=== PATIENT | female | born 1950 | race Caucasian/White ===

== ENCOUNTER 2016-09-13 22:21 | Inpatient (IN) ==
[2016-09-14] MEDS ORDERED: NON-FORMULARY MEDICATION 1 EACH EACH (Oxygen [Oxygen] 2 L) IN PRN (01:36)
[2016-09-14] MEDS ORDERED: Naloxone 0.4 MG/ML INJ IVP PRN (01:38)
[2016-09-14] MEDS ORDERED: *HR* OxyCODONE Immed Rel 5 MG TABLET PO PRN (01:38)
[2016-09-14] MEDS ORDERED: Ondansetron 4 MG/2 ML VIAL IVP PRN (01:38)
[2016-09-14] MEDS ORDERED: *HR* HYDROmorphone (PF) 1 MG/ML SYRINGE IVP PRN (01:38)
[2016-09-14] MEDS ORDERED: Acetaminophen 325 MG TABLET PO PRN (01:38)
[2016-09-14] MEDS ORDERED: 0.9 % Sodium Chloride 1,000 ML IVC SCH (01:45)
[2016-09-14] MEDS ORDERED: Dextrose Gel 15 GM PO PRN ×2 (01:50)
[2016-09-14] MEDS ORDERED: D5% in Water 1,000 ML IV PRN (01:50)
[2016-09-14] MEDS ORDERED: *HR* Dextrose 50 % in Water (Syg) 50 ML SYRINGE IVP PRN (01:50)
--- NOTE | 2016-09-14 02:02 | Internal Med History&Physical ---
Date of Encounter: 09/14/16 Time of Encounter: 02:00 Assessment and Plan (1) Symptomatic anemia Status: Acute . (2) History of PTCA Status: Chronic . (3) History of gastrointestinal bleeding Status: Chronic . (4) Hypertension Status: Resolved . Qualifiers: Hypertension type: essential hypertension Qualified Code(s): I10 - Essential (primary) hypertension (5) Dyslipidemia Status: Chronic . (6) COPD (chronic obstructive pulmonary disease) Status: Chronic . Qualifiers: COPD type: unspecified COPD Qualified Code(s): J44.9 - Chronic obstructive pulmonary disease, unspecified (7) SANTI (obstructive sleep apnea) Status: Chronic . (8) Chronic respiratory failure with hypoxia and hypercapnia Status: Chronic . (9) History of sudden cardiac arrest Status: Chronic . (10) Anxiety associated with depression Status: Chronic . (11) PAD (peripheral artery disease) Status: Chronic . (12) Physical deconditioning Status: Chronic . (13) Chronic kidney disease (CKD) Status: Chronic . Qualifiers: Chronic kidney disease stage: stage 5 Qualified Code(s): N18.5 - Chronic kidney disease, stage 5 (14) Coronary artery disease Status: Chronic . Qualifiers: Coronary Disease-Associated Artery/Lesion type: [place] artery [place] vs. transplanted heart: [place] heart Associated angina: without angina Qualified Code(s): I25.10 - Atherosclerotic heart disease of [place] coronary artery without angina pectoris (15) Diabetes mellitus Status: Chronic . Qualifiers: Diabetes mellitus type: type 2 Diabetes mellitus complication status: with kidney complications Diabetes mellitus complication detail: with chronic kidney disease Diabetes mellitus correction insulin use: without intermediate designer use Chronic kidney disease stage: on chronic dialysis Qualified Code(s): E11.22 - Type 2 diabetes mellitus with diabetic chronic kidney disease; N18.6 - End stage renal disease; Z99.2 - Dependence on renal dialysis (16) Lymphedema of both lower extremities Status: Chronic . (17) Morbid obesity Status: Chronic . Qualifiers: Obesity type: due to excess calories Qualified Code(s): E66.01 - Morbid ( severe) obesity due to excess calories (18) Thrombocytopenia Status: Acute . (19) Hypoalbuminemia due to protein-calorie malnutrition Status: Chronic . Internal Medicine - H&P: HPI Chief complaint: Symptomatic anemia. Admitted From: Hospital to Hospital Transfer (Hospital transfer [facility] emergency room) Plans for Post Hospital Care: Transfer Long Term Facility History of present illness: Ms. Golden is a 66 year old female care home resident at long-term [facility] hospital assignment with significant medical history of ESRD (MWF) HD dependent, H/O sudden /cardiac arrest, H/O ventilator-dependent respiratory failure, COPD , chronic hypercapnic respiratory failure home oxygen dependent, Pickwickian syndrome/SANTI (suspect OHS), hypertension, dyslipidemia, CAD/PTCAstents/AMIs, diastolic CHF, osteoarthritis, osteopenia, diabetic retinopathy, diabetic nephropathy, type 2 diabetes mellitus, dementia unspecified, depression and anxiety disorder, morbid obesity, former smoker. The patient was visited and interviewed and examined. The patient is admitted to the [facility] as a hospital transfer from [facility] emergency department where she presented via EMS services from care home in the company of family with complaint of symptomatic" low red blood cell count." The patient had been referred to the emergency department by her care home primary care physician to receive transfusion of 2 units of packed red blood cells because the hemoglobin of 5.8 measured on screening blood tests. (Hbg 8.9 in June 2016) . Patient denied any symptoms of shortness of air syncopal or presyncopal complaints of chest pain aggressive weakness or easy fatigability nor evidence of any active bleeding. Patient did carry a history of congestive heart failure and COPD as well as pickwickian syndrome/OHS/ obstructive sleep apnea in May 2016 and August 2016 the patient had experienced at least 3 separate inpatient hospitalizations for acute worsening in respiratory status brought about by CHF exacerbation worsening sleep apnea as well as acute respiratory failure with markedly hypercapnic and racute espiratory arrest requiring extended ICU/hospitalization for intubation and mechanical ventilator support. Following this she was transferred to care home for long-term care assignment. Since her cardiopulmonary arrests patient has been dialysis dependent Saturday. Findings in the ED: Temperature 97.3 pulse 82 respirations 18 BP 114/62 O2 saturation 98% at 2 L per nasal cannula. WBC 6.2 hemoglobin 7.4 hematocrit 24.7. MCH 26.5 MCHC 30. Platelets 128,000. RDW 22.1. MPV 8.1. Differential normal. Arterial blood gas pH 7.41 PCO2 41 PO2 102 bicarbonate 25.8 O2 saturation 98% on room air. Metabolic panel normal except BUN 22 creatinine 5.36 GFR 48. Glucose 176 osmolality 294. Albumin 2.6 total protein 6.6. 11.2 INR 1. Preliminary impression suggests acute on chronic Blood loss anemia. This in the setting of a patient with known end- stage renal disease and secondary chronic anemia due to this. However exacerbated by multiple hospitalizations within the last 6 months and anticipated multiple venipunctures for laboratory testing contributed iatrogenic blood loss anemia with the patient.denies any thoughts severely limiting symptoms. Initial reported hemoglobin of 5.8 was proven to be closer to 7.4 on current testing. Patient will undergo further evaluation for other sources of blood loss and anemia. He will be transfused during dialysis and initial 2 units packed red blood cells as per request. The patient is at risk acute clinical decline and morbidity due to her significant comorbidities. Workup and treatment will proceed comprehensively. Cumulative laboratory and radiographic data base was reviewed, considered and discussed. Pertinent ancillary medical records including ECW and PCI documentation, when available was reviewed and considered. Given the patient's presenting concerns, past medical history, clinical findings and symptoms, she is admitted at this time will undergo further evaluation and disposition. Orders were written as per the computerized physician line ordering clinician system.......................................................................... .................... Consultative opinion and will be sought as clinical circumstances justify. Initial consultative request has been made to nephrology/dialysis team. Pain management needs will be addressed. Laboratory and radiographic data base will be updated as appropriate. Studies include: Cultures of blood and urine and sputum, iron studies, vitamin B12, NMA , folic acid, cardiac injury panel, BNP, CPK, metabolic and hematologic panel, magnesium, phosphorus, ionized calcium, thyroid panel ,lipid profile, A1c, C- peptide, CRP sedimentation rate, blood gas, UA, Hemoccult , lactic acid, serologies, etc. Precautions: Aspiration, fall, delirium protocol/surveillance initiated. Orthostatic vital signs. Telemetry with continuous hemodynamic monitoring and pulse oximetry initiated. Special studies: Ultrasound retroperitoneum, chest x-ray, telemetry, EKG. The patient will be typed and screened and transfused 2 units of packed red blood cells goal is to achieve a stable hemoglobin of greater than 8.0. Pulmonary toilet: Incentive spirometry. When necessary aerosol bronchodilator, mucolytic, antitussive. Supplemental oxygen. Corticosteroid therapy prn. CPAP /BiPAP supplemental oxygen delivery. Aerosol Mucomyst therapy prn. Patient to resume on Saturday hemodialysis schedule. Fluid and electrolyte repletion efforts will proceed. Careful attention to fluid balance and renal recovery will be emphasized. Avoidance of nephrotoxic exposure and adverse drug drug interaction in the setting of impaired renal function will be monitored closely. Correction of metabolic and acid-base deficits will be emphasized Acute coronary syndrome protocol/surveillance initiated. DVT and PUD prophylaxis initiated: PPI therapy, intermittent pneumatic cuffs. Subcutaneous heparin. (Presenting thrombocytopenia will be monitored closely while on prophylactic heparin therapy.) Early ambulation will be encouraged. Immunization updates recommended. Influenza and pneumococcal vaccinations as part of ongoing preventative healthcare recommendations strongly recommended. Smoking cessation counseling briefly addressed. Patient is a former smoker. Advanced care directive discussion briefly addressed. Patient does not declare any healthcare restrictions at this time. Cardiovascular risk appraisal and cardiovascular risk reduction efforts will be emphasized. Physical and occupational therapy may be counseled to evaluate/assess patient's functional capacity and progress mobility as circumstances permit. Sliding scale insulin coverage, ADA/Renal dietary restraint and schedule an as- needed basis fingerstick glucose assessments were initiated. Patient will be withheld oral hypoglycemic therapy during inpatient stay and reinstated upon discharge. Nutrition/diabetes education counseling may be considered as circumstances justify. Outpatient medication schedules will be reviewed, confirmed and facilitated as appropriate. Reconciliation of home treatments including adjustments, substitutions and reintroduction into the treatment regimen will address necessary maintenance therapies for chronic pre-existing medical conditions. Plan of care has been reviewed and discussed in detail with the patient. Questions addressed. Hospital course will be dependent upon clinical findings, treatment response and potential consultative interventions. Patient is at risk for further acute clinical decline and morbidity due to her presenting chief complaints, findings and comorbid conditions. Condition is serious. Prognosis is guarded. CODE STATUS is full. Past Med Surg Social Fam HX - Past Medical History Medical history: arthritis, CHF, COPD (Obstructive sleep apnea. Chronic hypercapnic respiratory failure. Oxygen therapy dependent.), coronary artery disease, dementia, diabetes, dialysis (End-stage renal disease Saturday hemodialysis dependent.), GERD, GI bleed, glaucoma, hyperlipidemia, hypertension, myocardial infarction, osteoporosis, peripheral artery disease, renal disease, sudden cardiac (Sudden cardiac arrest sensibly resuscitated.), venous stasis (Lower extremity lymphedema-venostasis.), other ( Morbid obesity. History of gallstone pancreatitis.) Psychiatric history: anxiety, depression, other - Past Surgical History Surgical History: angioplasty/stent, cholecystectomy, herniorrhaphy (Umbilical hernia repair.), hysterectomy, orthopedic, other (Appear of left fibular fracture. Left carpal tunnel release surgery.), ODIN/BSO, other (Tonsillectomy adenoidectomy.) - Social History Smoking Status: Former smoker Smokeless Tobacco Status: No Alcohol use: none Drug use: none Current living situation: With Family Activity Level: Independent ambulation, Mostly sedentary Recent Out of Country Travel Within the Last 8 Weeks: No Exposure or Possible Exposure to Illness During Travel: No - Family History Mother Living Status: Hx Family Cancer: Yes (Breast cancer) Hx Family Endocrine Disorder: Yes (Diabetes) Father Living Status: Hx Family Endocrine Disorder: Yes (Diabetes) Sister Living Status: Hx Family Endocrine Disorder: Yes (Diabetes) Hx Family Neurologic Disorders: Yes (CVA) Hx Family Autoimmune Disorders: Yes (Lupus) Internal Medicine - H&P: Meds Latanoprost [Xalatan] 1 drop BOTH EYES HS 04/10/15 [History] Metoprolol [Lopressor] 50 mg PO Q12H 04/10/15 [History] Atorvastatin Calcium [Lipitor] 20 mg PO HS 07/17/16 [History] Acetaminophen [Acetaminophen ER] 650 mg PO Q6H PRN 09/14/16 [History] Albuterol Sulfate 2.5 mg IH Q6H PRN 09/14/16 [History] Bisacodyl [Dulcolax] 10 mg PO DAILY PRN 09/14/16 [History] Diltiazem HCl [Diltiazem 24Hr Cd] 180 mg PO DAILY 09/14/16 [History] Donepezil HCl [Aricept] 5 mg PO HS 09/14/16 [History] Ferrous Sulfate [Iron] 325 mg PO DAILY 09/14/16 [History] Furosemide [Lasix] 80 mg PO DAILY 09/14/16 [History] Insulin ASPART [NovoLOG] 10 unit SQ TIDWM 09/14/16 [History] Mag Hydrox/Al Hydrox/Simeth [Maalox] 30 ml PO Q6H PRN 09/14/16 [History] Midodrine [ProAmatine] 10 mg PO QMWF 09/14/16 [History] Nystatin POWDER [Nystop] 1 appl TP TID 09/14/16 [History] Pantoprazole Sodium 40 mg PO DAILY 09/14/16 [History] Polyethylene Glycol 3350 [MiraLAX] 17 gm PO Q12H PRN 09/14/16 [History] Renal Vitamin [Renal Caps Softgel] 1 mg PO DAILY 09/14/16 [History] LORazepam [Ativan] 0.5 mg PO Q8H #20 09/15/16 [Rx] Tramadol HCl [Ultram] 50 mg PO Q12H PRN #20 09/15/16 [Rx] Allergies hydrocodone Allergy (Verified 09/14/16 07:45) unknown morphine Allergy (Verified 09/13/16 16:28) Hives Penicillins Allergy (Verified 09/14/16 07:45) unknown Sulfa (Sulfonamide Antibiotics) Allergy (Verified 09/13/16 16:28) Hives diphenhydramine [From Benadryl] Adverse Reaction (Verified 09/13/16 16:28) Palpitations All Systems PM: A 10-system review of systems was performed and is negative for pertinent findings except as documented above in the HPI. - Constitutional Constitutional: as per HPI, no chills, no fever(s), no night sweats - EENT Eyes: as per HPI, no change in vision, no discharge, no pain, no photophobia Ears: as per HPI, no ear discharge, no ear pain, no tinnitus Nose, mouth and throat: as per HPI, no dysphagia, no nasal discharge, no neck pain, no sore throat - Cardiovascular Cardiovascular ROS IM: as per HPI, no chest pain, no diaphoresis, no dyspnea, no lightheadedness, no palpitations, no syncope - Respiratory Respiratory: as per HPI, no cough, no dyspnea, no wheezing, no excessive phlegm production - Gastrointestinal Gastrointestinal: as per HPI, no abdominal pain, no diarrhea, no hematemesis, no hematochezia, no melena, no nausea, no vomiting - Genitourinary Genitourinary: as per HPI, other, no change in urinary stream, no dysuria, no flank pain, no hematuria - Musculoskeletal Musculoskeletal ROS IM: as per HPI, no numbness, no tingling - Integumentary Integumentary IM: as per HPI, no rash, no unusual bruising - Neurological Neurological ROS: as per HPI, no confusion, no convulsions, no focal weakness, no numbness, no tingling, no tremor(s) - Psychiatric Psychiatric: as per HPI - Endocrine Endocrine IM: as per HPI - Hematologic/Lymphatic Hematologic/Lymphatic: as per HPI, no easy bruising - Allergic/Immunologic Allergic/Immunologic: as per HPI - Constitutional Vitals: Temp Pulse Resp BP Pulse Ox 97.7 F 92 12 90/56 100 09/14/16 01:23 09/14/16 01:23 09/14/16 01:23 09/14/16 01:23 09/14/16 01:23 General appearance: Present: mild distress, A&O X 3, morbidly obese, answers questions appropriately - Head Head exam: Present: atraumatic, normocephalic - Eye Eye exam: Present: EOMI, PERRL, conjuntiva pink, sclera anicteric Pupils: Present: normal accommodation, PERRL - ENT ENT exam: Present: mucous membranes moist, normal oropharynx - Neck Neck exam general surgery: Present: full ROM, supple, trachea midline. Absent: lymphadenopathy - Respiratory Respiratory exam: Present: chest wall tenderness, decreased breath sounds, CTAB , prolonged expiratory phase. Absent: accessory muscle use, rales, rhonchi, wheezes - Cardiovascular Cardiovascular exam: Present: distant heart sounds, RRR, +S1, +S2. Absent: diastolic murmur, gallop, rubs, systolic murmur - GI/Abdominal GI/Abdominal exam: Present: diminished bowel sounds, distended, soft, no peritoneal signs. Absent: tenderness - Extremities Exam Extremities exam: Present: full ROM, warm, radial pulses palpable and symetrical. Absent: calf tenderness, cyanotic, pedal edema - Neurological Exam Neurological exam: Present: alert, CN II-XII intact, oriented X3, no focal deficits. Absent: pronater drift, facial droop, speech deficit - Psychiatric Psychiatric exam: Present: normal affect, normal mood - Skin Skin exam: Present: dry, intact, warm. Absent: petechiae, rash, urticaria, vesicles Internal Med - H&P Results - Labs CBC & Chem 7: 09/15/16 01:17 09/15/16 11:25 - Impressions Vital Signs Temp Pulse Resp BP Pulse Ox 09/14/16 01:23 97.7 F 92 12 90/56 100 Intake and Output 09/13/16 09/13/16 09/14/16 15:59 23:59 07:59 Other: Weight 135.6 kg Patient Weight 09/14/16 23:59 Weight 135.6 kg Allergies Allergy/AdvReac Type Severity Reaction Status Date / Time morphine Allergy Hives Verified 09/13/16 16:28 Sulfa (Sulfonamide Allergy Hives Verified 09/13/16 16:28 Antibiotics) diphenhydramine AdvReac Palpitation Verified 09/13/16 16:28 [From Benadryl] s Abnormal lab results RBC 3.20 M/mcL (3.82-4.97) L 09/15/16 01: Hgb 8.8 g/dL (11.5-15.4) L D 09/15/16 01: Hct 29.2 % (35.3-44.9) L 09/15/16 01: MCH 27.5 pg (28.0-33.3) L 09/15/16 01: MCHC 30.1 g/dL (31.6-35.5) L 09/15/16 01: RDW 21.2 % (11.5-14.5) H 09/15/16 01: Plt Count 110 K/mcL (140-400) L 09/15/16 01: MPV 7.9 fL (9.4-12.4) L 09/15/16 01:17 Nucleated RBCs/100 WBC 0.8 /100 WBC (0) H 09/15/16 01:17 VBG pH 7.53 pH Units (7.32-7.42) H 09/14/16 02:23 VBG pCO2 31 mmHg (41-51) L 09/14/16 02:23 VBG pO2 119 mmHg (25-40) H 09/14/16 02:23 BUN 21 mg/dL (7-20) H 09/15/16 11:25 Creatinine 4.99 mg/dL (0.57-1.11) H 09/15/16 11:25 Est GFR ( Amer) 10 (> 60) L 09/15/16 11:25 Est GFR (Non-Af Amer) 9 (> 60) L 09/15/16 11:25 BUN/Creatinine Ratio 4 (6-26) L 09/15/16 11:25 Glucose 129 mg/dL (70-99) H 09/15/16 11:25 POC Glucose 127 (58-89) H 09/15/16 12:18 Hemoglobin A1c 5.9 % (-5.6) H 09/15/16 01: Calcium 8.4 mg/dL (8.6-10.8) L 09/15/16 11:25 % Saturation 62 % (15-50) H 09/15/16 01: HDL Cholesterol 33 mg/dL (40-59) L 09/14/16 02:23 Methylmalonic Acid 0.51 umol/L (0.00-0.40) H 09/15/16 01:17 Urine Color Red (Yellow) A 09/14/16 07:00 Urine Clarity Turbid (Clear) A 09/14/16 07:00 Urine Protein >=300 mg/dL (Neg-Trace) H 09/14/16 07:00 Urine Ketones Trace mg/dL (Negative) H 09/14/16 07:00 Urine Blood Large (Negative) H 09/14/16 07:00 Urine Bilirubin Small (Negative) H 09/14/16 07:00 Ur Leukocyte Esterase Large (Negative) H 09/14/16 07:00 Urine Microscopic WBC TNTC per hpf (0-3) H 09/14/16 07:00 Ur Squamous Epith Cells Many per lpf (None-Few) H 09/14/16 07:00 Stool Occult Blood Positive (Negative) A 09/14/16 15:15 Laboratory Results WBC 6.4 K/mcL (4.3-11.1) 09/15/16 01: RBC 3.20 M/mcL (3.82-4.97) L 09/15/16 01: Hgb 8.8 g/dL (11.5-15.4) L D 09/15/16 01:17 Hct 29.2 % (35.3-44.9) L 09/15/16 01: MCV 91.3 fL (83.0-100.0) 09/15/16 01: MCH 27.5 pg (28.0-33.3) L 09/15/16: MCHC 30.1 g/dL (31.6-35.5) L 09/15/16: RDW 21.2 % (11.5-14.5) H 09/15/16 01: Plt Count 110 K/mcL (140-400) L 09/15/16 01: MPV 7.9 fL (9.4-12.4) L 09/15/16 01: Immature Gran % 2.2 % (0-4) 09/15/16 01: Seg Neutrophils % 68.9 % 09/15/16 01: Lymphocytes % 13.8 % 09/15/16 01: Monocytes % 9.6 % 09/15/16 01: Eosinophils % 5.0 % 09/15/16 01: Basophils % 0.5 % 09/15/16 01: Neutrophils # 4.4 K/mcL (1.6-8.9) 09/15/16 01: Lymphocytes # 0.9 K/mcL (0.6-4.6) 09/15/16 01: Monocytes # 0.6 K/mcL (0.0-1.3) 09/15/16 01: Eosinophils # 0.3 K/mcL (0.0-0.6) 09/15/16 01: Basophils # 0.0 K/mcL (0.0-0.2) 09/15/16 01:17 Nucleated RBCs/100 WBC 0.8 /100 WBC (0) H 09/15/16 01: VBG pH 7.53 pH Units (7.32-7.42) H 09/14/16 02:23 VBG pCO2 31 mmHg (41-51) L 09/14/16 02:23 VBG pO2 119 mmHg (25-40) H 09/14/16 02:23 VBG HCO3 25.9 mEq/L (21-27) 09/14/16 02:23 Sodium 137 mEq/L (136-145) 09/15/16 11:25 Potassium 4.2 mEq/L (3.5-4.5) 09/15/16 11:25 Chloride 103 mEq/L (98-109) 09/15/16 11:25 Carbon Dioxide 25 mEq/L (19-29) 09/15/16 11:25 BUN 21 mg/dL (7-20) H 09/15/16 11:25 Creatinine 4.99 mg/dL (0.57-1.11) H 09/15/16 11:25 Est GFR ( Amer) 10 (> 60) L 09/15/16 11:25 Est GFR (Non-Af Amer) 9 (> 60) L 09/15/16 11:25 BUN/Creatinine Ratio 4 (6-26) L 09/15/16 11:25 Glucose 129 mg/dL (70-99) H 09/15/16 11:25 POC Glucose 127 (58-89) H 09/15/16 12:18 Est Mean Plasma Glucose 123 mg/dl 09/15/16 01: Hemoglobin A1c 5.9 % (-5.6) H 09/15/16 01: Calculated Osmolality 289 (280-300) 09/15/16 11:25 Lactic Acid 1.2 mmol/L (0.5-2.2) 09/14/16 02:23 Calcium 8.4 mg/dL (8.6-10.8) L 09/15/16 11:25 Phosphorus 3.9 mg/dL (2.3-4.7) 09/14/16 02:23 Magnesium 1.8 mg/dL (1.6-2.6) 09/14/16 02:23 Iron 158 mcg/dL (50-170) 09/15/16 01: % Saturation 62 % (15-50) H 09/15/16 01: Transferrin 183 mg/dL (180-382) 09/15/16 01: Troponin I 0.02 ng/mL (0-0.03) 09/15/16 01:17 Triglycerides 128 mg/dL (< 150) 09/14/16 02:23 Cholesterol 110 mg/dL (< 200) 09/14/16 02:23 LDL Cholesterol, Calc 51 mg/dL (0-99) 09/14/16 02:23 VLDL Cholesterol, Calc 26 mg/dL (< 31) 09/14/16 02:23 HDL Cholesterol 33 mg/dL (40-59) L 09/14/16 02: Cholesterol/HDL Ratio 3.3 (0-4.9) 09/14/16 02:23 Vitamin B12 702 pg/mL (213-816) 09/15/16: Methylmalonic Acid 0.51 umol/L (0.00-0.40) H 09/15/16: Folate 8.5 ng/mL (7.0-31.4) 09/15/16 01: TSH 4.137 mcIU/mL (0.350-4.840) 09/14/16 02:23 Urine Color Red (Yellow) A 09/14/16 07:00 Urine Clarity Turbid (Clear) A 09/14/16 07:00 Urine pH 6.0 pH Units (5.0-8.0) 09/14/16 07:00 Ur Specific [place] 1.018 (1.010-1.025) 09/14/16 07:00 Urine Protein >=300 mg/dL (Neg-Trace) H 09/14/16 07:00 Urine Glucose (UA) Normal mg/dL (Normal) 09/14/16 07:00 Urine Ketones Trace mg/dL (Negative) H 09/14/16 07:00 Urine Blood Large (Negative) H 09/14/16 07:00 Urine Nitrite Negative (Negative) 09/14/16 07:00 Urine Bilirubin Small (Negative) H 09/14/16 07:00 Urine Urobilinogen Normal mg/dL (Normal) 09/14/16 07:00 Ur Leukocyte Esterase Large (Negative) H 09/14/16 07:00 Urine Microscopic RBC Present per hpf (0-3) 09/14/16 07:00 Urine Microscopic WBC TNTC per hpf (0-3) H 09/14/16 07:00 Ur Squamous Epith Cells Many per lpf (None-Few) H 09/14/16 07:00 Urine Bacteria None Seen per hpf (None-Few) 09/14/16 07:00 Hyaline Casts See Below per lpf (None-Few) 09/14/16 07:00 Urine Yeast per hpf (None Seen) 09/14/16 07:00 Stool Occult Blood Positive (Negative) A 09/14/16 15:15 Hep Bs Antigen Nonreactive (Nonreactive) 09/14/16 08:42 Hep Bs Antibody 0.35 mIU/mL 09/14/16 08:42 Specimen Rejected Volume 09/14/16 02:23 Blood Type A POSITIVE 09/14/16 02:23 Antibody Screen NEGATIVE 09/14/16 02:23 Crossmatch See Detail 09/14/16 02:23
[2016-09-14] MEDS ORDERED: Octreotide 400 MCG in 0.9 % Sodium Chloride 100 ML IVC SCH (02:20)
[2016-09-14] MEDS ORDERED: Pantoprazole 80 MG in 0.9 % Sodium Chloride 50 ML IVPB ONE (02:20)
[2016-09-14] MEDS ORDERED: Octreotide 50 MCG/ML SYRINGE IVP ONE (02:20)
[2016-09-14 02:40] LABS: VBG HCO3 25.9 mEq/L (21-27); VBG PH 7.53 pH Units (7.32-7.42)
[2016-09-14 02:59] LABS: Calcium 8.8 mg/dL (8.6-10.8); Chol/HDL Ratio 3.3 (0-4.9); Magnesium 1.8 mg/dL (1.6-2.6); Phosphorous 3.9 mg/dL (2.3-4.7); Potassium 4.1 mEq/L (3.5-4.5)
[2016-09-14] MEDS: Pantoprazole 40 MG in 0.9 % Sodium Chloride Mini Bag 100 ML IVC SCH ×2 (03:24→08:08)
[2016-09-14 04:02] LABS: Hematocrit 24.1 % (35.3-44.9); Hemoglobin 7.2 g/dL (11.5-15.4); Mean Corpuscular HGB Conc 29.9 g/dL (31.6-35.5); Mean Corpuscular Hemoglobin 27.1 pg (28.0-33.3); Mean Corpuscular Volume 90.6 fL (83.0-100.0); Mean Platelet Volume 8.5 fL (9.4-12.4); Platelet Count 124 K/mcL (140-400); Red Blood Count 2.66 M/mcL (3.82-4.97); Red Cell Distribution Width 22.5 % (11.5-14.5)
[2016-09-14 04:14] LABS: Hemoglobin A1C 6.1 %
[2016-09-14 07:39] LABS: Bilirubin,Urine Small (Negative); Blood,Urine Large (Negative); Clarity,Urine Turbid (Clear); Color,Urine Red (Yellow); Glucose,Urine (UA) Normal (Normal); Ketones,Urine Trace mg/dL (Negative); Leukocyte Esterase,Urine Large (Negative); Nitrite,Urine Negative (Negative); Protein,Urine >=300 mg/dL (Neg-Trace); Specific Gravity,Urine 1.018 (1.010-1.025); Urobilinogen,Urine Normal (Normal)
[2016-09-14 07:41] LABS: Bacteria,Urine None Seen per hpf (None-Few); Squamous Epithelial Cell,Urine Many per lpf (None-Few); WBC,Urine TNTC per hpf (0-3)
[2016-09-14 07:49] LABS: RBC,Urine Present per hpf (0-3)
[2016-09-14] MEDS: *HR* LORazepam 1 MG TABLET PO SCH ×2 (08:08→20:35)
[2016-09-14] MEDS: Insulin LISPRO 300 UNITS/3 ML VIAL SQ SCH ×3 (08:09→16:48)
--- NOTE | 2016-09-14 08:47 | Internal Med Progress Note ---
Date of Encounter: 09/14/16 Time of Encounter: 08:15 - Assessment and plan (1) Anemia Current Visit: Yes Status: Acute Assessment and plan: Patient likely has acute on chronic anemia. She is noted to have hemoglobin of 8-10 until last month. However, patient is also noted to have been recently started on hemodialysis about a month ago after sustaining cardiac arrest and developing acute renal failure with no improvement. Insufficient workup and information available at this time. We will send stool for occult blood testing. Patient provides no history suggestive of GI bleed and she does have underlying dementia with no family at bedside. Will transfuse 2 units PRBC during hemodialysis today. Follow-up iron panel, serum vitamin B12 and folate levels. According to ER documentation, patient was sent to the emergency room by the correction physician for PRBC transfusion for hemoglobin less than 6, however I cannot find those labs. Patient's hemoglobin since presenting to our emergency room has been above 7. Qualifiers: Anemia type: unspecified type Qualified Code(s): D64.9 - Anemia, unspecified (2) ESRD (end stage renal disease) on dialysis Current Visit: Yes Status: Chronic Assessment and plan: Nephrology consulted and patient will receive hemodialysis today per her usual schedule. (3) Anxiety associated with depression Current Visit: Yes Status: Chronic (4) COPD (chronic obstructive pulmonary disease) Current Visit: Yes Status: Chronic Assessment and plan: Not in acute exacerbation. Continue when necessary supplemental oxygen and bronchodilators. Qualifiers: COPD type: unspecified COPD Qualified Code(s): J44.9 - Chronic obstructive pulmonary disease, unspecified (5) Chronic respiratory failure with hypoxia and hypercapnia Current Visit: Yes Status: Chronic Assessment and plan: Patient is noted to have underlying obstructive sleep apnea/obesity hypoventilation syndrome along with COPD and pulmonary hypertension. She is supposed to be on nocturnal BiPAP, which is yet to be arranged at her current correction where she started residing only 2 days back. Medical records from [facility] have been reviewed with patient had a prolonged hospitalization including ICU stay with intubation due to respiratory failure. She is noted to be noncompliant with BiPAP and currently is tearful when asked about it and begs not to make her wear a BiPAP mask. Continue supplemental oxygen and monitor respiratory status closely. High risk patient. (6) Coronary artery disease Current Visit: Yes Status: Chronic Qualifiers: Coronary Disease-Associated Artery/Lesion type: [place] artery [place] vs. transplanted heart: [place] heart Associated angina: without angina Qualified Code(s): I25.10 - Atherosclerotic heart disease of [place] coronary artery without angina pectoris (7) Diabetes mellitus Current Visit: Yes Status: Chronic Assessment and plan: Continue Accu-Chek blood glucose monitoring with sliding scale insulin. Diabetic diet. Hemoglobin A1c is noted to be 6.1%. Qualifiers: Diabetes mellitus type: type 2 Diabetes mellitus complication status: with kidney complications Diabetes mellitus complication detail: with chronic kidney disease Diabetes mellitus shelter insulin use: without shelter use Chronic kidney disease stage: on chronic dialysis Qualified Code(s): E11.22 - Type 2 diabetes mellitus with diabetic chronic kidney disease; N18.6 - End stage renal disease; Z99.2 - Dependence on renal dialysis (8) Dyslipidemia Current Visit: Yes Status: Chronic (9) History of sudden cardiac arrest Current Visit: Yes Status: Chronic (10) Lymphedema of both lower extremities Current Visit: Yes Status: Chronic (11) Morbid obesity Current Visit: Yes Status: Chronic Qualifiers: Obesity type: due to excess calories Qualified Code(s): E66.01 - Morbid ( severe) obesity due to excess calories (12) SANTI (obstructive sleep apnea) Current Visit: Yes Status: Chronic - Subjective Interval history: Reports no complaints; keeps repeating that she is extremely hungry and did not like her clear liquid diet; she did not get enough sleep last night due to vitals check; refuses to use BiPAP; no reported vomiting, abdominal pain, hematochezia/melena/hematemesis; - Constitutional Vitals: Temp Pulse Resp BP Pulse Ox 97.6 F 87 16 94/48 100 09/14/16 07:45 09/14/16 07:45 09/14/16 07:45 09/14/16 07:45 09/14/16 08:20 General appearance: Present: cooperative (uncooperative), A&O X 2, morbidly obese - Respiratory Respiratory exam: Present: CTAB (anetorlaterally). Absent: accessory muscle use , rales, rhonchi, wheezes - Cardiovascular Cardiovascular exam: Present: RRR, +S1, +S2. Absent: diastolic murmur, gallop, rubs, systolic murmur - GI/Abdominal GI/Abdominal exam: Present: normal bowel sounds, soft (obese), no peritoneal signs. Absent: distended, tenderness - Extremities Exam Extremities exam: Present: pedal edema, warm, radial pulses palpable and symetrical. Absent: calf tenderness, cyanotic - Neurological Exam Neurological exam: Present: CN II-XII intact, oriented X3, no focal deficits, strengths equal and symetr throughout (generalized weakness B/L LE). Absent: pronater drift, facial droop, speech deficit - Skin Skin exam: Present: dry, erythema (right posterolateral leg), intact Internal Medicine: Result - Labs CBC & Chem 7: 09/14/16 08:42 09/14/16 02:23 Labs: Short CBC 09/14/16 Range/Units 03:52 WBC 5.8 (4.3-11.1) K/mcL Hgb 7.2 L (11.5-15.4) g/dL Hct 24.1 L (35.3-44.9) % Plt Count 124 L (140-400) K/mcL BMP 09/14/16 02:23 Sodium 136 Potassium 4.1 Chloride 104 Carbon Dioxide 20 BUN 23 H Creatinine 5.63 H Glucose 193 H Calcium 8.8 Cardiac Enzymes 09/14/16 Range/Units 02:23 Troponin I 0.01 (0-0.03) ng/mL Urine 09/14/16 Range/Units 07:00 Urine Color Red A (Yellow) Urine Clarity Turbid A (Clear) Urine pH 6.0 (5.0-8.0) pH Units Ur Specific [place] 1.018 (1.010-1.025) Urine Protein >=300 H (Neg-Trace) mg/dL Urine Glucose (UA) Normal (Normal) mg/dL Consult Discharge Plan - Plan Referrals: Jc Kraus MD [Primary Care Provider] -
[2016-09-14] MEDS ORDERED: Insulin DETEMIR 100 UNIT/ML X5UNITS SQ SCH ×2 (09:00→21:00)
[2016-09-14] MEDS ORDERED: FLUoxetine HCl 10 MG CAPSULE PO SCH (09:00)
[2016-09-14] MEDS ORDERED: INSULIN GLARGINE 18 UNIT SQ SCH (09:00)
[2016-09-14 09:02] LABS: Hematocrit 24.7 % (35.3-44.9); Hemoglobin 7.3 g/dL (11.5-15.4)
--- NOTE | 2016-09-14 09:44 | Nephrology Consult Note ---
Date of Encounter: 09/14/16 Time of Encounter: 09:42 Assessment and Plan (1) ESRD (end stage renal disease) on dialysis Current Visit: Yes Status: Acute Patient receives hemodialysis Saturday. Primary manufacturing weaver Dr. Hughes. We will arrange her normal hemodialysis regimen today while she is inpatient. Also we will transfuse 2 units pack red blood cells during her treatment. (2) Normocytic anemia Current Visit: Yes Status: Acute Patient's hemoglobin appears to be slowly trending downward since approximately 1 year ago. This may be secondary to her end-stage renal disease, but the primary team has initiated an anemia workup. Patient may require initiation of EPO in the setting of anemia caused by chronic kidney disease. No evidence of active bleeding at this time. Patient denies any hematemesis, melena, or hematochezia. (3) IDDM (insulin dependent diabetes mellitus) Current Visit: Yes Status: Chronic (4) Chronic respiratory failure with hypoxia and hypercapnia Current Visit: Yes Status: Chronic History of Present Illness - Reason for Consult Consult date: 09/14/16 end stage renal disease Requesting physician: Shante Vega - Chief Complaint HD dependent ESRD - History of Present Illness Ms. Golden is a 66-year-old female with a past medical history of hemodialysis dependent end-stage renal disease, COPD, chronic hypercapnic respiratory failure, obstructive sleep apnea, hypertension, dyslipidemia, coronary artery disease, heart failure with preserved ejection fraction, and insulin-dependent diabetes mellitus who was sent to the emergency department from her snf for low hemoglobin. Initial hemoglobin at outside emergency department was found to be 7.4 and patient was transferred to [place] for further workup. The patient has no complaints at this time and specifically denies any chest pain, shortness of breath, nausea/vomiting/ diarrhea. She denies any hematemesis, melena, or hematochezia. She is hemodialysis dependent end-stage renal disease with Saturday dialysis. Nephrology has been consulted to arrange for inpatient hemodialysis. Past Med Surg Social Fam HX - Past Medical History Medical history: arthritis, CHF, COPD (Obstructive sleep apnea. Chronic hypercapnic respiratory failure. Oxygen therapy dependent.), coronary artery disease, diabetes, dialysis (End-stage renal disease Saturday hemodialysis dependent.), GERD, GI bleed, glaucoma, hyperlipidemia, hypertension , myocardial infarction, osteoporosis, peripheral artery disease, renal disease , sudden cardiac (Sudden cardiac arrest sensibly resuscitated.), venous stasis (Lower extremity lymphedema-venostasis.), other (Morbid obesity. History of gallstone pancreatitis.) Psychiatric history: anxiety, depression, other - Past Surgical History Surgical History: angioplasty/stent, cholecystectomy, herniorrhaphy (Umbilical hernia repair.), hysterectomy, orthopedic, other (Appear of left fibular fracture. Left carpal tunnel release surgery.), ODIN/BSO, other (Tonsillectomy adenoidectomy.) - Social History Smoking Status: Former smoker Smokeless Tobacco Status: No Alcohol use: none Drug use: none - Family History Mother Living Status: Hx Family Cancer: Yes (Breast cancer) Hx Family Endocrine Disorder: Yes (Diabetes) Father Living Status: Hx Family Endocrine Disorder: Yes (Diabetes) Sister Living Status: Hx Family Endocrine Disorder: Yes (Diabetes) Hx Family Neurologic Disorders: Yes (CVA) Hx Family Autoimmune Disorders: Yes (Lupus) Medications and Allergies LORazepam [Ativan] 1 mg PO BID 04/10/15 [History] Latanoprost [Xalatan] 1 drop BOTH EYES HS 04/10/15 [History] Metoprolol [Lopressor] 50 mg PO Q12H 04/10/15 [History] Aspirin [Adult Low Dose Aspirin EC] 81 mg PO DAILY 05/23/15 [History] Atorvastatin Calcium [Lipitor] 20 mg PO HS 07/17/16 [History] Acetaminophen [Acetaminophen ER] 650 mg PO Q6H PRN 09/14/16 [History] Albuterol Sulfate 2.5 mg IH Q6H PRN 09/14/16 [History] Bisacodyl [Dulcolax] 5 mg PO DAILY PRN 09/14/16 [History] Diltiazem 180 mg PO DAILY 09/14/16 [History] Donepezil HCl [Aricept] 5 mg PO HS 09/14/16 [History] Ferrous Sulfate [Iron] 325 mg PO DAILY 09/14/16 [History] Furosemide [Lasix] 80 mg PO DAILY 09/14/16 [History] Heparin 5,000 unit SQ Q12HR 09/14/16 [History] Insulin ASPART [NovoLOG] 100 unit SQ TIDWM 09/14/16 [History] LORazepam [Ativan] 0.5 mg PO Q8H 09/14/16 [History] Mag Hydrox/Al Hydrox/Simeth [Maalox] 30 ml PO Q6H PRN 09/14/16 [History] Midodrine [ProAmatine] 10 mg PO QMWF 09/14/16 [History] Nystatin POWDER [Nystop] 1 appl TP TID 09/14/16 [History] Pantoprazole Sodium 40 mg PO DAILY 09/14/16 [History] Polyethylene Glycol 3350 [MiraLAX] 17 gm PO Q12H PRN 09/14/16 [History] Renal Vitamin [Renal Caps Softgel] 1 mg PO DAILY 09/14/16 [History] Tramadol HCl [Ultram] 50 mg PO Q12H PRN 09/14/16 [History] Allergies hydrocodone Allergy (Verified 09/14/16 07:45) unknown morphine Allergy (Verified 09/13/16 16:28) Hives Penicillins Allergy (Verified 09/14/16 07:45) unknown Sulfa (Sulfonamide Antibiotics) Allergy (Verified 09/13/16 16:28) Hives diphenhydramine [From Benadryl] Adverse Reaction (Verified 09/13/16 16:28) Palpitations Review of Systems All Systems: reviewed and no additional remarkable complaints except as stated Exam - Vital Signs Vital signs: Initial Vital Signs Temp Pulse Resp BP Pulse Ox 97.7 F 92 12 90/56 100 09/14/16 01:23 09/14/16 01:23 09/14/16 01:23 09/14/16 01:23 09/14/16 01:23 Vital Signs - Last 8 Hours Temp Pulse Resp BP Pulse Ox 09/14/16 08:20 100 09/14/16 07:45 97.6 F 87 16 94/48 100 09/14/16 02:56 98.4 F 93 18 126/66 98 Intake and Output 09/13/16 09/14/16 09/14/16 23:59 07:59 15:59 Intake Total 300 / 300 360 / 360 Output Total 200 / 200 0 / 0 Balance 100 / 100 360 / 360 Intake: IV Fluids 50 / 50 0 / 0 Protonix 40 MG In 0.9 % 0 / 0 Sodium Chloride (Mini-Bag +) 100 ML @ 20 mls/hr IVC .Q5H VIVIANA Rx#: [id number] Protonix 80 MG In 0.9 % 50 / 50 Sodium Chloride 50 ML @ 600 mls/hr IVPB ONCE ONE Rx#:[id number] Oral 250 / 250 360 / 360 Output: Urine 200 / 200 0 / 0 Urethral ([place]) 200 / 200 Other: Meal Breakfast Percent of Meal Consumed 100% # Urine Diapers 1 Weight 135.6 kg Blood Glucose* 250 Patient Weight 09/14/16 23:59 Weight 135.6 kg - General Appearance Exam: General: Patient is alert and in no acute distress HEENT: Normocephalic atraumatic, pupils are equal round and reactive to light and accommodation, tympanic membrane is intact, nares is patent, mucous membranes moist, throat is not injected, no JVD, trachea is midline Cardiovascular: Regular rate and rhythm without murmur Respiratory: Lungs are clear to auscultation bilaterally, no wheezing, rhonchi, rales Abdomen: Soft, nontender, obese, positive bowel sounds in all 4 quadrants Extremities: Warm, dry, no edema Neuro: A&Ox3, speech is appropriate, cranial nerves II through XII are normal as tested Results - Lab Results 09/14/16 08:42 09/14/16 02:23 Most recent lab results Calcium 8.8 mg/dL (8.6-10.8) 09/14/16 02:23 Phosphorus 3.9 mg/dL (2.3-4.7) 09/14/16 02:23 Magnesium 1.8 mg/dL (1.6-2.6) 09/14/16 02:23 Consult Discharge Plan - Plan Referrals: Jc Kraus MD [Primary Care Provider] -
[2016-09-14] MEDS ORDERED: 0.9 % Sodium Chloride 250 ML IV PRN (10:00)
[2016-09-14] MEDS ORDERED: 0.9 % Sodium Chloride 2,000 ML ONE (11:05)
[2016-09-14] MEDS ORDERED: *HR* Alteplase (Cathflo) 2 MG VIAL IVP ONE ×2 (13:05→13:45)
[2016-09-14] MEDS ORDERED: 0.9 % Sodium Chloride 250 ML ONE (14:24)
[2016-09-14] MEDS: Miconazole 2% cream 118 GM TUBE TP SCH ×2 (14:37→20:41)
--- NOTE | 2016-09-14 16:09 | Electrocardiograph Report ---
[facility] Test Date: 2016-09-14 Pat Name: Krystal Golden Department: 112 Room: 2A26 Gender: F Web Content Specialist: BEBE : 1950 Requested By: Dusty Del Cid Order Number: [id number] [place] MD: Parisa Christina Measurements Intervals [place] Rate: 92 P: [place]: 0 QRS: 76 QRSD: 96 T: 240 QT: 343 QTc: 393 Interpretive Statements ATRIAL FIBRILLATION LOW QRS VOLTAGE IN PRECORDIAL LEADS MODERATE T-WAVE ABNORMALITY, CONSIDER INFERIOR ISCHEMIA Electronically Signed On 09-14-16 16:07:00 EST by Parisa Christina
[2016-09-14] MEDS: Insulin DETEMIR 100 UNIT/ML X5UNITS SQ SCH (20:35)
[2016-09-14] MEDS ORDERED: INSULIN GLARGINE SQ SCH (21:00)
[2016-09-14] MEDS ORDERED: Gabapentin 100 MG CAPSULE PO SCH (21:00)
[2016-09-14] MEDS ORDERED: Latanoprost 2.5 ML BOTTLE BOTH EYES SCH (21:00)
[2016-09-14] MEDS ORDERED: Insulin LISPRO 300 UNITS/3 ML VIAL SQ SCH (21:00)
[2016-09-15 01:33] LABS: Basophils % 0.5 %; Eosinophils # 0.3 K/mcL (0.0-0.6); Hematocrit 29.2 % (35.3-44.9); Hemoglobin 8.8 g/dL (11.5-15.4); Immature Granulocytes % 2.2 % (0-4); Lymphocytes # 0.9 K/mcL (0.6-4.6); Lymphocytes % 13.8 %; Mean Corpuscular HGB Conc 30.1 g/dL (31.6-35.5); Mean Corpuscular Hemoglobin 27.5 pg (28.0-33.3); Mean Corpuscular Volume 91.3 fL (83.0-100.0); Mean Platelet Volume 7.9 fL (9.4-12.4); Monocytes # 0.6 K/mcL (0.0-1.3); Monocytes % 9.6 %; Neutrophils # 4.4 K/mcL (1.6-8.9); Nucleated Red Blood Cells 0.8 /100 WBC (0); Platelet Count 110 K/mcL (140-400); Red Cell Distribution Width 21.2 % (11.5-14.5); Segmented Neutrophils % 68.9 %
[2016-09-15 01:45] LABS: Hemoglobin A1C 5.9 %
[2016-09-15 01:48] LABS: % Iron Saturation 62 % (15-50); Iron 158 mcg/dL (50-170); Transferrin 183 mg/dL (180-382)
[2016-09-15 02:25] LABS: Folate 8.5 ng/mL (7.0-31.4)
[2016-09-15] MEDS ORDERED: Diltiazem CD (24hr) 180 MG CAPSULE PO SCH (09:00)
[2016-09-15] MEDS ORDERED: *HR* FentaNYL (PF) 100 MCG/2 ML VIAL ONE (09:05)
[2016-09-15] MEDS ORDERED: *HR* Midazolam HCl 5 MG/5 ML VIAL IVP ONE (09:05)
--- NOTE | 2016-09-15 09:22 | Internal Medicine Consult Note ---
Date of Encounter: 09/15/16 Time of Encounter: 09:21 Internal Medicine - CN: HPI - Data of Consult Patient: new to practice Requesting Physician: Shante Vega MD - Consult Narrative History of present illness: Ms. Golden is a 66 year old female who may be having occult GI bleeding. I was asked to see her in consultation, with regards to dropping hemoglobin and Hemoccult positive stools. She is an unfortunate 66-year-old female with multiple comorbidities, in fact had a recent prolonged two-month hospital stay in July and at [facility]. Those records have been reviewed. She reports from [place] yesterday with apparent symptomatic anemia. She did have a hemoglobin of 7.3 after 2 units as gone up to 8.8. She has shown no melena, no hematemesis nausea or vomiting actually is hungry. No abdominal pain. Just Hemoccult positive stools. I have searched back through [place], and found Hemoccult positive stools as far back as 2013. At that time she did not want EGD or colonoscopy. Upon entering her room, to talk about the procedure, she is one somewhat angry, not happy quite tearful about having no more needles, being tired. Essentially called the granddaughter, Subha, the power of district attorney, who is not ready to consent at this time due to complications that are possible with EGD. If indeed we had a perforation, she would most likely . I think the larger question is this intensity of care for her. Given her morbid obesity, inability to help herself, and comorbids, prognosis is extremely poor. I would strongly recommend further conversations with shop tailor, palliative services; I mentioned hospice care to the daughter. Overall Mrs. Golden is quite miserable and wants to be left alone and wants no more needles. ROS unobtainable: due to mental status Past Med Surg Social Fam HX - Past Medical History Medical history: arthritis, CHF, COPD, coronary artery disease, diabetes, dialysis, GERD, GI bleed, glaucoma, hyperlipidemia, hypertension, myocardial infarction, osteoporosis, peripheral artery disease, renal disease, sudden cardiac , venous stasis, other Psychiatric history: anxiety, depression, other - Past Surgical History Surgical History: angioplasty/stent, cholecystectomy, herniorrhaphy, hysterectomy, orthopedic, other, ODIN/BSO, other - Social History Smoking Status: Former smoker Smokeless Tobacco Status: No Alcohol use: none Drug use: none - Family History Mother Living Status: Hx Family Cancer: Yes (Breast cancer) Hx Family Endocrine Disorder: Yes (Diabetes) Father Living Status: Hx Family Endocrine Disorder: Yes (Diabetes) Sister Living Status: Hx Family Endocrine Disorder: Yes (Diabetes) Hx Family Neurologic Disorders: Yes (CVA) Hx Family Autoimmune Disorders: Yes (Lupus) Internal Medicine - CN: Meds Latanoprost [Xalatan] 1 drop BOTH EYES HS 04/10/15 [History] Metoprolol [Lopressor] 50 mg PO Q12H 04/10/15 [History] Aspirin [Adult Low Dose Aspirin EC] 81 mg PO DAILY 05/23/15 [History] Atorvastatin Calcium [Lipitor] 20 mg PO HS 07/17/16 [History] Acetaminophen [Acetaminophen ER] 650 mg PO Q6H PRN 09/14/16 [History] Albuterol Sulfate 2.5 mg IH Q6H PRN 09/14/16 [History] Bisacodyl [Dulcolax] 10 mg PO DAILY PRN 09/14/16 [History] Diltiazem HCl [Diltiazem 24Hr Cd] 180 mg PO DAILY 09/14/16 [History] Donepezil HCl [Aricept] 5 mg PO HS 09/14/16 [History] Ferrous Sulfate [Iron] 325 mg PO DAILY 09/14/16 [History] Furosemide [Lasix] 80 mg PO DAILY 09/14/16 [History] Heparin 5,000 unit SQ Q12HR 09/14/16 [History] Insulin ASPART [NovoLOG] 10 unit SQ TIDWM 09/14/16 [History] LORazepam [Ativan] 0.5 mg PO Q8H 09/14/16 [History] Mag Hydrox/Al Hydrox/Simeth [Maalox] 30 ml PO Q6H PRN 09/14/16 [History] Midodrine [ProAmatine] 10 mg PO QMWF 09/14/16 [History] Nystatin POWDER [Nystop] 1 appl TP TID 09/14/16 [History] Pantoprazole Sodium 40 mg PO DAILY 09/14/16 [History] Polyethylene Glycol 3350 [MiraLAX] 17 gm PO Q12H PRN 09/14/16 [History] Renal Vitamin [Renal Caps Softgel] 1 mg PO DAILY 09/14/16 [History] Tramadol HCl [Ultram] 50 mg PO Q12H PRN 09/14/16 [History] Allergies hydrocodone Allergy (Verified 09/14/16 07:45) unknown morphine Allergy (Verified 09/13/16 16:28) Hives Penicillins Allergy (Verified 09/14/16 07:45) unknown Sulfa (Sulfonamide Antibiotics) Allergy (Verified 09/13/16 16:28) Hives diphenhydramine [From Benadryl] Adverse Reaction (Verified 09/13/16 16:28) Palpitations Internal Medicine - CN: Exam - Constitutional Vitals: Temp Pulse Resp BP Pulse Ox 97.4 F L 98 20 124/64 99 09/15/16 08:56 09/15/16 09:07 09/15/16 09:07 09/15/16 09:07 09/15/16 09:07 General appearance IM: Present: A&O X 1, morbidly obese. Absent: cooperative Exam: She is overall, depressed, tearful, and quite miserable. Just wants to be left alone and have no more needles she keeps saying. I cannot appreciate as to whether she can understand palliative care, hospice, type conversations. - Head Head exam: Present: atraumatic, normal inspection Additional comments: Wearing glasses - ENT ENT exam: Present: mucous membranes dry, normal oropharynx - Neck Neck exam general surgery: Present: supple, trachea midline. Absent: tenderness , nuchal rigidity - Respiratory Respiratory exam: Present: CTAB Additional comments: Decreased breath sounds in the bases, but overall quite clear, she is not tachypneic. - Cardiovascular Cardiovascular exam IM: Present: distant heart sounds, RRR - GI/Abdominal GI/Abdominal exam IM: Present: distended, normal bowel sounds. Absent: rebound , rigid, splenomegaly, tenderness Additional comments: Numerous abdominal ecchymotic areas due to heparin subcutaneous injections. - Rectal Rectal exam: Present: deferred Internal Medicine - CN: Reslt - Labs CBC & Chem 7: 09/15/16 01:17 09/14/16 02:23 Labs: Short CBC 09/14/16 09/15/16 Range/Units 03:52 01:17 WBC 5.8 6.4 (4.3-11.1) K/mcL Hgb 7.2 L 8.8 L D (11.5-15.4) g/dL Hct 24.1 L 29.2 L (35.3-44.9) % Plt Count 124 L 110 L (140-400) K/mcL Neutrophils # 4.4 (1.6-8.9) K/mcL BMP 09/14/16 02:23 Sodium 136 Potassium 4.1 Chloride 104 Carbon Dioxide 20 BUN 23 H Creatinine 5.63 H Glucose 193 H Calcium 8.8 Cardiac Enzymes 09/14/16 09/15/16 Range/Units 08:42 01:17 Troponin I 0.02 0.02 (0-0.03) ng/mL Urine 09/14/16 Range/Units 07:00 Urine Color Red A (Yellow) Urine Clarity Turbid A (Clear) Urine pH 6.0 (5.0-8.0) pH Units Ur Specific [place] 1.018 (1.010-1.025) Urine Protein >=300 H (Neg-Trace) mg/dL Urine Glucose (UA) Normal (Normal) mg/dL - Assessment and Plan (1) Normocytic anemia Current Visit: Yes Status: Acute Assessment and plan: Again it's possible she has slow GI bleeding from multiple sites, given her previous hospitalizations and her comorbid conditions, she could have gastritis , esophagitis ulcer disease. AVMs are also to be considered. I think something more ominous such as malignancy is less likely. I did want to pursue upper endoscopy this morning but right now the granddaughter wants to have further conversations wiyh the patient about the intensity of care, which is appropriate It would be my recommendation that how the services talk to the daughter and granddaughter, and they would provide more her comfort, I do not believe she will benefit for aggressive therapy, I do believe this is bordering on futility. Really cannot say if she's had true blood loss anemia it's possible most of this could be anemia due to chronic disease and poor nutrition (2) COPD (chronic obstructive pulmonary disease) Current Visit: Yes Status: Chronic Qualifiers: COPD type: unspecified COPD Qualified Code(s): J44.9 - Chronic obstructive pulmonary disease, unspecified (3) Chronic respiratory failure with hypoxia and hypercapnia Current Visit: Yes Status: Chronic (4) End stage renal disease on dialysis Current Visit: Yes Status: Acute Consult Discharge Plan - Plan Referrals: Jc Kraus MD [Primary Care Provider] -
[2016-09-15] MEDS: Insulin LISPRO 300 UNITS/3 ML VIAL SQ SCH ×4 (09:53→17:03)
[2016-09-15] MEDS: Insulin DETEMIR 100 UNIT/ML X5UNITS SQ SCH (09:53)
[2016-09-15] MEDS: *HR* LORazepam 1 MG TABLET PO SCH (09:53)
[2016-09-15] MEDS: Miconazole 2% cream 118 GM TUBE TP SCH (09:58)
[2016-09-15] MEDS ORDERED: 0.9 % Sodium Chloride 250 ML IV PRN (10:19)
--- NOTE | 2016-09-15 10:32 | Nephrology Progress Note ---
Date of Encounter: 09/15/16 Time of Encounter: 10:30 - Assessment and Plan (1) Anemia Current Visit: Yes Status: Acute Hemoglobin improved after transfusion. Patient refused EGD. No sign of active bleeding. Qualifiers: Anemia type: unspecified type Qualified Code(s): D64.9 - Anemia, unspecified (2) End stage renal disease on dialysis Current Visit: Yes Status: Acute HD MWF. There was difficulty with her catheter yesterday and "Cath-gali" was used. She refused to come back yesterday for dialysis per dialysis nurse, but is requesting dialysis today. Plan to perform dialysis today. Renal diet and adjust medications for renal function. Ok for discharge from renal standpoint after dialysis. (3) Morbid obesity Current Visit: Yes Status: Chronic Qualifiers: Obesity type: due to excess calories Qualified Code(s): E66.01 - Morbid ( severe) obesity due to excess calories Subjective Principal diagnosis: ESRD Interval history: Patient without new complaint. She is requesting dialysis today, but has no other significant complaint. Review of systems seems to be stable. Objective - Vital Signs Vital signs: Vital Signs Temp Pulse Resp BP Pulse Ox 09/15/16 09:07 98 20 124/64 99 09/15/16 08:56 97.4 F L 83 18 99 09/15/16 07:09 97.3 F L 89 18 98/68 100 09/15/16 04:30 97.9 F 92 17 110/63 100 09/14/16 23:41 97.9 F 88 18 94/60 100 09/14/16 20:17 97.8 F 89 18 109/63 100 09/14/16 18:06 98.2 F 85 20 93/56 100 09/14/16 17:51 98.6 F 93 20 108/66 100 09/14/16 17:33 98.6 F 93 20 108/66 100 09/14/16 15:02 98.5 F 86 20 112/65 100 09/14/16 14:47 98.5 F 87 20 90/57 100 09/14/16 12:35 20 09/14/16 12:30 112/65 09/14/16 12:15 97.5 F L 22 135/42 09/14/16 11:52 97.6 F 90 16 109/39 99 Intake and Output 0109/15/16 09/15/16 23:59 07:59 15:59 Intake Total 1100 / 1100 300 / 300 240 / 240 Balance 1100 / 1100 300 / 300 240 / 240 Intake: Oral 600 / 600 240 / 240 Blood Product 500 / 500 300 / 300 Rbcs Leuko Poor As-1 0 / 0 300 / 300 Unit [id number] Rbcs Leuko Poor As-1 500 / 500 Unit [id number] Other: Meal Dinner Breakfast Percent of Meal Consumed 65% 90% Weight 136.3 kg 136.3 kg Blood Glucose* 206 Patient Weight 09/15/16 23:59 Weight 136.3 kg - General Appearance General appearance: Present: well-developed, well-nourished EENT: Present: ATNC Neck: Present: supple Respiratory: Present: clear Cardiology: Present: edema, regular rate, regular rhythm Gastrointestinal: Present: no tenderness Integumentary: Present: warm and dry Neurologic: Present: alert and oriented x3 Musculoskeletal: Present: no cyanosis Psychiatric: Present: mood/affect appropriate - Lab 09/15/16 01:17 09/14/16 02:23 Most recent lab results Calcium 8.8 mg/dL (8.6-10.8) 09/14/16 02:23 Phosphorus 3.9 mg/dL (2.3-4.7) 09/14/16 02:23 Magnesium 1.8 mg/dL (1.6-2.6) 09/14/16 02:23 - VTE Documentation of Mechanical Device: Intermittent pneumatic compression device Consult Discharge Plan - Plan Referrals: Jc Kraus MD [Primary Care Provider] -
[2016-09-15 12:04] LABS: Calcium 8.4 mg/dL (8.6-10.8); Potassium 4.2 mEq/L (3.5-4.5)
[2016-09-15 12:38] LABS: Hepatitis B Surface Antigen Nonreactive (Nonreactive)
--- NOTE | 2016-09-15 12:42 | Palliative - Consult Note ---
Date of Encounter: 09/15/16 Time of Encounter: 11:30 - Assessment and Plan (1) Goals of care, counseling/discussion Current Visit: Yes Status: Acute Assessment and plan: The patient is currently undergoing dialysis. She is alert and consents to talking. I began by reviewing her health history and personal goals and desires. She reports living in an ECF where she was doing physical therapy in hope of getting stronger to return to her own home. She is aware of her medical needs and describes herself as being tired of needles and test. I discussed her desires for continuing dialysis and she confirms that she wants to live but it to scared with to much anxiety about undergoing and EGD or Colonoscopy. She is fearful of having complications from these exams. I discussed her low blood counts and the fact that not locating a source of bleeding my further impact her life expectancy. She understands that but is not willing or ready to do these types of procedures. She is still in favor of returning to ECF and continuing dialysis as scheduled on [facility]. She also confirms her Full Code status and desires to live. After meeting and assessing the patient, I conducted a meeting her granddaughter Whitney. Subha ba understands how sick the patient is and supports her decisions. I discussed Code Status with her as well and Full Code is the plan. She agrees to continuing dialysis as this is what has been keeping her alive. The patient desires to continue dialysis therefore comfort care if not an option at this time. If the patient desires to forgo this intervention in the future then she would certainly meet criteria for hospice. Thank you for the consult. (2) Anxiety Current Visit: No Status: Acute Assessment and plan: Patient with strong history of anxiety. Continue current doses of Ativan as scheduled. (3) End stage renal disease on dialysis Current Visit: Yes Status: Acute (4) COPD (chronic obstructive pulmonary disease) Current Visit: Yes Status: Chronic Qualifiers: COPD type: unspecified COPD Qualified Code(s): J44.9 - Chronic obstructive pulmonary disease, unspecified Palliative-CN HPI - Data of Consult Patient: new to practice Consult date: 09/15/16 Requesting Physician: Shante Vega MD Primary Care Provider: Jc Kraus MD - Consult Narrative Palliative Care/Comfort Measures: Palliative care Reason for consult: Goals of Care History of present illness: Ms. Golden is a 66 year old female admitted with anemia. She was seen today by Dr. Randolph and she has refused to undergo an EGO or Colonoscopy for declining Hgb and Hct. Upon this consult she is in Dialysis undergoing her treatment. She is alert and oriented. She currently resides in an F and has a history significant for ESRD (MWF) HD dependent, H/O sudden /cardiac arrest and COPD. The palliative care team was consulted to discuss GOC as she is refusing EGD as part of her anemia work-up. CC: Shante Vega MD Past Med Surg Social Fam HX - Past Medical History Source: patient, old records reviewed Medical history: arthritis, CHF, COPD, coronary artery disease, diabetes, dialysis, GERD, GI bleed, glaucoma, hyperlipidemia, hypertension, myocardial infarction, osteoporosis, peripheral artery disease, renal disease, sudden cardiac , venous stasis, other Psychiatric history: anxiety, depression, other - Past Surgical History Surgical History: angioplasty/stent, cholecystectomy, herniorrhaphy, hysterectomy, orthopedic, other, ODIN/BSO, other - Social History Smoking Status: Former smoker Smokeless Tobacco Status: No Alcohol use: none Drug use: none Occupational status: unemployed Current living situation: [facility] Activity Level: Bed bound Recent Out of Country Travel Within the Last 8 Weeks: No Exposure or Possible Exposure to Illness During Travel: No - Family History Mother Living Status: Hx Family Cancer: Yes (Breast cancer) Hx Family Endocrine Disorder: Yes (Diabetes) Father Living Status: Hx Family Endocrine Disorder: Yes (Diabetes) Sister Living Status: Hx Family Endocrine Disorder: Yes (Diabetes) Hx Family Neurologic Disorders: Yes (CVA) Hx Family Autoimmune Disorders: Yes (Lupus) Medications and Allergies Latanoprost [Xalatan] 1 drop BOTH EYES HS 04/10/15 [History] Metoprolol [Lopressor] 50 mg PO Q12H 04/10/15 [History] Aspirin [Adult Low Dose Aspirin EC] 81 mg PO DAILY 05/23/15 [History] Atorvastatin Calcium [Lipitor] 20 mg PO HS 07/17/16 [History] Acetaminophen [Acetaminophen ER] 650 mg PO Q6H PRN 09/14/16 [History] Albuterol Sulfate 2.5 mg IH Q6H PRN 09/14/16 [History] Bisacodyl [Dulcolax] 10 mg PO DAILY PRN 09/14/16 [History] Diltiazem HCl [Diltiazem 24Hr Cd] 180 mg PO DAILY 09/14/16 [History] Donepezil HCl [Aricept] 5 mg PO HS 09/14/16 [History] Ferrous Sulfate [Iron] 325 mg PO DAILY 09/14/16 [History] Furosemide [Lasix] 80 mg PO DAILY 09/14/16 [History] Heparin 5,000 unit SQ Q12HR 09/14/16 [History] Insulin ASPART [NovoLOG] 10 unit SQ TIDWM 09/14/16 [History] LORazepam [Ativan] 0.5 mg PO Q8H 09/14/16 [History] Mag Hydrox/Al Hydrox/Simeth [Maalox] 30 ml PO Q6H PRN 09/14/16 [History] Midodrine [ProAmatine] 10 mg PO QMWF 09/14/16 [History] Nystatin POWDER [Nystop] 1 appl TP TID 09/14/16 [History] Pantoprazole Sodium 40 mg PO DAILY 09/14/16 [History] Polyethylene Glycol 3350 [MiraLAX] 17 gm PO Q12H PRN 09/14/16 [History] Renal Vitamin [Renal Caps Softgel] 1 mg PO DAILY 09/14/16 [History] Tramadol HCl [Ultram] 50 mg PO Q12H PRN 09/14/16 [History] Allergies hydrocodone Allergy (Verified 09/14/16 07:45) unknown morphine Allergy (Verified 09/13/16 16:28) Hives Penicillins Allergy (Verified 09/14/16 07:45) unknown Sulfa (Sulfonamide Antibiotics) Allergy (Verified 09/13/16 16:28) Hives diphenhydramine [From Benadryl] Adverse Reaction (Verified 09/13/16 16:28) Palpitations All systems: reviewed and no additional remarkable complaints except as stated ( fatigue, weakness,) - Constitutional Constitutional ROS PAL: fatigue - EENT Eyes: requires corrective lenses - Respiratory Respiratory: dyspnea on exertion - Gastrointestinal Gastrointestinal: melena, nausea - Genitourinary Palliative ROS female: as per HPI - Musculoskeletal Musculoskeletal ROS IM: muscle weakness - Integumentary ROS Integumentary: dry skin - Neurological Neurological ROS: weakness - Psychiatric Psychiatric general PM: anxiety Palliative Care-Exam - Constitutional Vitals: Temp Pulse Resp BP Pulse Ox 97.4 F L 83 16 97/63 99 09/15/16 10:50 09/15/16 12:19 09/15/16 12:19 09/15/16 12:20 09/15/16 09:07 General appearance: Present: cooperative, obese Internal Medicine - CN: Reslt - Labs CBC & Chem 7: 09/15/16 01:17 09/15/16 11:25 Labs: Short CBC 09/15/16 Range/Units 01: WBC 6.4 (4.3-11.1) K/mcL Hgb 8.8 L D (11.5-15.4) g/dL Hct 29.2 L (35.3-44.9) % Plt Count 110 L (140-400) K/mcL Neutrophils # 4.4 (1.6-8.9) K/mcL BMP 09/15/16 11:25 Sodium 137 Potassium 4.2 Chloride 103 Carbon Dioxide 25 BUN 21 H Creatinine 4.99 H Glucose 129 H Calcium 8.4 L Cardiac Enzymes 09/15/16 Range/Units 01:17 Troponin I 0.02 (0-0.03) ng/mL Consult Discharge Plan - Plan Referrals: Jc Kraus MD [Primary Care Provider] - Palliative Quality Palliative Quality: Screen for Code Status: Yes, Screen for Goals of Care: Yes, Screen for Pain: Yes, If Pain Regimen Started, Initiate Bowel Regimen: Yes, Screen for Nausea/Vomitting: Yes Code Status: 09/14/16 01:38 Resuscitation Status: Active [RES] Routine Comment: Resuscitation Status: Full Code
[2016-09-15 14:03] VITALS: BP 94/64
--- NOTE | 2016-09-15 16:16 | Discharge Summary ---
Date of Encounter: 09/15/16 Time of Encounter: 16:12 - Discharge Diagnosis (1) Anemia Priority: Primary Status: Acute Qualifiers: Anemia type: unspecified type Qualified Code(s): D64.9 - Anemia, unspecified (2) ESRD (end stage renal disease) on dialysis Priority: Secondary Status: Chronic (3) Anxiety associated with depression Priority: Secondary Status: Chronic (4) COPD (chronic obstructive pulmonary disease) Priority: Secondary Status: Chronic Qualifiers: COPD type: unspecified COPD Qualified Code(s): J44.9 - Chronic obstructive pulmonary disease, unspecified (5) Chronic respiratory failure with hypoxia and hypercapnia Priority: Secondary Status: Chronic (6) Coronary artery disease Priority: Secondary Status: Chronic Qualifiers: Coronary Disease-Associated Artery/Lesion type: [place] artery [place] vs. transplanted heart: [place] heart Associated angina: without angina Qualified Code(s): I25.10 - Atherosclerotic heart disease of [place] coronary artery without angina pectoris (7) Diabetes mellitus Priority: Secondary Status: Chronic Qualifiers: Diabetes mellitus type: type 2 Diabetes mellitus complication status: with kidney complications Diabetes mellitus complication detail: with chronic kidney disease Diabetes mellitus chcf insulin use: without termite treater use Chronic kidney disease stage: on chronic dialysis Qualified Code(s): E11.22 - Type 2 diabetes mellitus with diabetic chronic kidney disease; N18.6 - End stage renal disease; Z99.2 - Dependence on renal dialysis (8) Dyslipidemia Priority: Secondary Status: Chronic (9) History of sudden cardiac arrest Priority: Secondary Status: Chronic (10) Lymphedema of both lower extremities Priority: Secondary Status: Chronic (11) Morbid obesity Priority: Secondary Status: Chronic Qualifiers: Obesity type: due to excess calories Qualified Code(s): E66.01 - Morbid ( severe) obesity due to excess calories (12) SANTI (obstructive sleep apnea) Priority: Secondary Status: Chronic - Discharge Medications Home Medications: Latanoprost [Xalatan] 1 drop BOTH EYES HS 04/10/15 [History] Metoprolol [Lopressor] 50 mg PO Q12H 04/10/15 [History] Atorvastatin Calcium [Lipitor] 20 mg PO HS 07/17/16 [History] Acetaminophen [Acetaminophen ER] 650 mg PO Q6H PRN 09/14/16 [History] Albuterol Sulfate 2.5 mg IH Q6H PRN 09/14/16 [History] Bisacodyl [Dulcolax] 10 mg PO DAILY PRN 09/14/16 [History] Diltiazem HCl [Diltiazem 24Hr Cd] 180 mg PO DAILY 09/14/16 [History] Donepezil HCl [Aricept] 5 mg PO HS 09/14/16 [History] Ferrous Sulfate [Iron] 325 mg PO DAILY 09/14/16 [History] Furosemide [Lasix] 80 mg PO DAILY 09/14/16 [History] Insulin ASPART [NovoLOG] 10 unit SQ TIDWM 09/14/16 [History] Mag Hydrox/Al Hydrox/Simeth [Maalox] 30 ml PO Q6H PRN 09/14/16 [History] Midodrine [ProAmatine] 10 mg PO QMWF 09/14/16 [History] Nystatin POWDER [Nystop] 1 appl TP TID 09/14/16 [History] Pantoprazole Sodium 40 mg PO DAILY 09/14/16 [History] Polyethylene Glycol 3350 [MiraLAX] 17 gm PO Q12H PRN 09/14/16 [History] Renal Vitamin [Renal Caps Softgel] 1 mg PO DAILY 09/14/16 [History] LORazepam [Ativan] 0.5 mg PO Q8H #20 09/15/16 [Rx] Tramadol HCl [Ultram] 50 mg PO Q12H PRN #20 09/15/16 [Rx] Allergies/Adverse Reactions: Allergies hydrocodone Allergy (Verified 09/14/16 07:45) unknown morphine Allergy (Verified 09/13/16 16:28) Hives Penicillins Allergy (Verified 09/14/16 07:45) unknown Sulfa (Sulfonamide Antibiotics) Allergy (Verified 09/13/16 16:28) Hives diphenhydramine [From Benadryl] Adverse Reaction (Verified 09/13/16 16:28) Palpitations Procedures/tests Complete & Pending: Procedures Performed prior 72 hours Category Date Time Status ECG 12 lead ECG [ECG] AM 0600 Y 09/14/16 06:00 Completed Date of admission: 09/14/16 15:25 Primary care physician: Jc Kraus MD Consults: 09/14/16 01:50 Consult to Water Supply Technician [CONS] Routine Comment: 09/14/16 04:50 Consult to Refrigerator Glazier [CONS] Routine Reason for SW Consult: FROM [facility] 09/14/16 04:52 Consult to Wound Care [CONS] Routine Reason for Consult: evaluate and treat wounds Call Completed: No 09/14/16 08:39 Consult to Nephrology [CONS] Routine Consulting Provider: Kidney Spclst Veronica MARTEL/ROSALINDA Reason for Consult: ESRD for HD Call Completed: Yes 09/14/16 10:00 Consult to Dialysis [CONS] ONCE 09/15/16 10:00 Consult to Dialysis [CONS] ONCE 09/15/16 10:26 Consult to Palliative Care [CONS] Routine Comment: Consulting Provider: Palliative Care Veronica 09/15/16 10:30 Consult to Dialysis [CONS] ONCE Discharging clinician: Shante Vega Anticipated date of discharge: 09/15/16 - Patient Status Disposition: Transfer SNF Condition: Fair Functional capacity at discharge: bed bound Overall status at discharge: patient is progressing back to baseline - Discharge Instructions Instructions: Anemia (GEN), Diabetic Kidney Disease (DC) Follow Up With: Jc Kraus MD [Primary Care Provider] - (Pt going to [facility] - Diet and Activity Activity: resume usual activities as tolerated Diet: diabetic diet, low fat, low cholesterol, low salt diet, other (renal diet) Hospital course: Ms. Golden is a 66 year old female with multiple medical problems who was [facility] for blood transfusion. No records of hemoglobin less than 7 have been found since presentation to the emergency room. However, her hemoglobin stayed at around 7.2 and she received 2 units of PRBC transfusion during this hospitalization. Patient does not have a known diagnosis of dementia, however cannot provide appropriate history and is mainly focused on diet and sleep and being discharged back to the [facility]. Stool for occult blood test has been positive and GI has been consulted and patient has been approached with recommendation of possible EGD, which she refused. Nephrology has been consulted and she received her regular hemodialysis session. Palliative care has been consulted to discuss her goals of care given her multiple medical conditions, her refusal of BiPAP and EGD; patient and her granddaughter have decided for the CODE STATUS to be full code and to continue rest of her medical management. Her hospitalization, medical conditions and prognosis have been discussed with her granddaughter who is her power of erisa attorney, who verbalized understanding. She is also noted to have paroxysmal atrial fibrillation, which was also documented during her recent prolonged hospitalization at [facility] , however she does not seem to have been discharged on long-term oral anticoagulation. We will not start at this time due to her current anemia and possible GI bleed. She is noted to have aspirin and subcutaneous heparin at the [facility], which are currently being held. She is otherwise medically stable for discharge. - Time Spent with Patient Total time spent providing and/or coordinating discharge services: Greater than 30 minutes (45 min) - Constitutional Vitals: Temp Pulse Resp BP Pulse Ox 97.4 F L 83 20 94/64 99 09/15/16 10:50 09/15/16 12:19 09/15/16 14:03 09/15/16 14:03 09/15/16 09:07 General appearance: Present: A&O X 2, morbidly obese. Absent: cooperative - Respiratory Respiratory exam: Present: CTAB. Absent: accessory muscle use, rales, rhonchi, wheezes - Cardiovascular Cardiovascular exam: Present: irregular rhythm, +S1, +S2. Absent: diastolic murmur, gallop, rubs, systolic murmur - VTE Documentation of Mechanical Device: Intermittent pneumatic compression device
--- NOTE | 2016-09-15 16:18 | Physician Discharge Referral ---
ExtendedCare Referral Info Transfer To: [facility] and Care Provider in Charge: Shante Vega Provider in Charge after Transfer: PCP Institutional Level of Care: Skilled - Diagnosis (1) Anemia Priority: Primary Status: Acute (2) ESRD (end stage renal disease) on dialysis Priority: Secondary Status: Chronic (3) Anxiety associated with depression Priority: Secondary Status: Chronic (4) COPD (chronic obstructive pulmonary disease) Priority: Secondary Status: Chronic (5) Chronic respiratory failure with hypoxia and hypercapnia Priority: Secondary Status: Chronic (6) Coronary artery disease Priority: Secondary Status: Chronic (7) Diabetes mellitus Priority: Secondary Status: Chronic (8) Dyslipidemia Priority: Secondary Status: Chronic (9) History of sudden cardiac arrest Priority: Secondary Status: Chronic (10) Lymphedema of both lower extremities Priority: Secondary Status: Chronic (11) Morbid obesity Priority: Secondary Status: Chronic (12) SANTI (obstructive sleep apnea) Priority: Secondary Status: Chronic Expected Duration of Placement: 4 weeks Prognosis: Fair Aware of Diagnosis: Patient, Family Aware of Prognosis: Patient, Family - Transfer Medications Home Medications: Latanoprost [Xalatan] 1 drop BOTH EYES HS 04/10/15 [History] Metoprolol [Lopressor] 50 mg PO Q12H 04/10/15 [History] Atorvastatin Calcium [Lipitor] 20 mg PO HS 07/17/16 [History] Acetaminophen [Acetaminophen ER] 650 mg PO Q6H PRN 09/14/16 [History] Albuterol Sulfate 2.5 mg IH Q6H PRN 09/14/16 [History] Bisacodyl [Dulcolax] 10 mg PO DAILY PRN 09/14/16 [History] Diltiazem HCl [Diltiazem 24Hr Cd] 180 mg PO DAILY 09/14/16 [History] Donepezil HCl [Aricept] 5 mg PO HS 09/14/16 [History] Ferrous Sulfate [Iron] 325 mg PO DAILY 09/14/16 [History] Furosemide [Lasix] 80 mg PO DAILY 09/14/16 [History] Insulin ASPART [NovoLOG] 10 unit SQ TIDWM 09/14/16 [History] LORazepam [Ativan] 0.5 mg PO Q8H 09/14/16 [History] Mag Hydrox/Al Hydrox/Simeth [Maalox] 30 ml PO Q6H PRN 09/14/16 [History] Midodrine [ProAmatine] 10 mg PO QMWF 09/14/16 [History] Nystatin POWDER [Nystop] 1 appl TP TID 09/14/16 [History] Pantoprazole Sodium 40 mg PO DAILY 09/14/16 [History] Polyethylene Glycol 3350 [MiraLAX] 17 gm PO Q12H PRN 09/14/16 [History] Renal Vitamin [Renal Caps Softgel] 1 mg PO DAILY 09/14/16 [History] Tramadol HCl [Ultram] 50 mg PO Q12H PRN 09/14/16 [History] Allergies/Adverse Reactions: Allergies hydrocodone Allergy (Verified 09/14/16 07:45) unknown morphine Allergy (Verified 09/13/16 16:28) Hives Penicillins Allergy (Verified 09/14/16 07:45) unknown Sulfa (Sulfonamide Antibiotics) Allergy (Verified 09/13/16 16:28) Hives diphenhydramine [From Benadryl] Adverse Reaction (Verified 09/13/16 16:28) Palpitations - Respiratory Orders Smoking Cessation: Smoking cessation has been advised. For more information, call the [place] Tobacco Quit Line at 5-188-COXR-NOW. - Ancillary Orders May use pressure relief devices daily prn - Advance Directives Power of Hand Shoes Sewer: Yes (granddaughter) Code Status: Full Code - Mobility Orders Ambulate - Rehabiliation Orders Rehab Potential: Fair Rehab Orders: ROM Exercises, Evaluation for Physical Therapy, Evaluation for Occupational Therapy - Diet Orders No Concentrated Sweets (diabetic), Renal, Cardiac CERTIFICATION: I certify that the transfer of the above named patient to an Extended Care Facility is necessary for the continuing treatment of the diagnosis listed. The above information is true and accurate reflection of patient's current condition. Confidential - Redisclosure prohibited without a patient's written consent.
[2016-09-17 12:59] LABS: Hepatitis B Surface Antibody 0.35 mIU/mL
== END 2016-09-15 17:20 | DRG 811 ==
LOC: 2ANU
PROVIDERS: ADMIT Internal Medicine; ATTEND Internal Medicine